=== PATIENT | male | born 1940 | race Caucasian/White ===

== ENCOUNTER → 2024-02-17 13:58 | Outpatient (REF) | payer MEDICARE, SELFPAY ==
[2024-02-17 15:00] LABS: Blood Urea Nitrogen 33 mg/dl (9-20); Carbon Dioxide 23 mmol/L (22-30); Chloride 103 mmol/L (98-107); Glucose 226 mg/dl (70-99); Potassium 4.7 mmol/L (3.5-5.1); Sodium 135 mmol/L (135-145)
[2024-02-17 15:19] LABS: eGFR 45.91
== END ==
LOC: REG 13:58
PROVIDERS: ATTENDING PHYSICIAN Family Medicine
DX: N18.32 Chronic kidney disease, stage 3b (principal); E87.5 Hyperkalemia
CPT/HCPCS: 36415; 80048